=== PATIENT | female | born 1980 | race Caucasian/White ===

== ENCOUNTER → 2021-11-12 10:26 | Outpatient (CLI) | payer BC, SELFPAY ==
--- NOTE | ~2021-11-12 | MM_ITS ---
EXAMINATION: MM screening lisa BI w silverio HISTORY: Screening TECHNIQUE: Craniocaudal and mediolateral oblique 3-D tomosynthesis images were obtained and synthetic 2-D images were generated. CAD analysis was submitted and interpreted. COMPARISON: No prior mammogram is available for comparison at this institution. BREAST PARENCHYMAL COMPOSITION: There are scattered areas of fibroglandular density. FINDINGS: There is no evidence of suspicious mass, calcification, or architectural distortion to sugg est malignancy in either breast. There has been no suspicious interval change. IMPRESSION: 1. No mammographic evidence of malignancy. 2. Recommend routine screening mammography in one year. BI-RADS Category 1: Negative Reviewed, dictated and finalized at location A.
== END ==
PROVIDERS: PCP Physician Assistant; Visit Provider Physician Assistant
DX: Z12.31 Encounter for screening mammogram for malignant neoplasm of breast (principal)
CPT/HCPCS: 77063; 77067

== ENCOUNTER → 2022-03-03 12:40 | Outpatient (CLI) | payer BC, SELFPAY ==
--- NOTE | ~2022-03-03 | US_ITS ---
EXAMINATION: US pelvic complete DATE: 03/03/2022 13:00 INDICATION: Pelvic pain for 6 months Comparison:No prior studies for comparison. TECHNIQUE: Multiple transabdominal and endovaginal sonographic images of the pelvis performed. FINDINGS: The uterus measures 8.3 x 5.1 x 6.5 cm. The endometrial complex measures 9 mm. The right ovary measures 2.3 x 1.2 x 2.8 cm and the left ovary measures 2.5 x 1.5 x 2.5 cm. There ar e small follicles in each ovary. Normal doppler signal in both ovaries. There is no free fluid in the pelvis. There are no abnormal masses seen on either side. IMPRESSION: 1. Unremarkable pelvic ultrasound. Reviewed, dictated and finalized at location A.
== END ==
PROVIDERS: PCP Physician Assistant; Visit Provider Physician Assistant
DX: R10.2 Pelvic and perineal pain (principal)
CPT/HCPCS: 76856

== ENCOUNTER 2022-08-23 03:00 | Emergency (ER) | payer BC, SELFPAY ==
--- NOTE | ~2022-08-23 | US_ITS ---
Limited Abdominal Sonogram: Real-time sonographic imaging of the right upper quadrant was performed. Clinical History: Right upper quadrant pain Findings: The liver appears normal with no evidence of mass lesion or bile duct dilatation. Main por mukund vein demonstrates normal direction of flow. The gallbladder is well distended, and contains small layering stones. No definite gallbladder wall thickening. The common bile duct measures 4 mm. The v isualized pancreas, aorta, and IVC are unremarkable. Impression: Cholelithiasis. No definite ultrasound evidence for acute cholecystitis. Reviewed, dictated and finalized at location . UCTION SANITIZER Impression: Cholelithiasis. No definite ultrasound evidence for acute cholecystitis.
--- NOTE | ~2022-08-23 | CT_ITS ---
CT Abdomen and Pelvis with contrast. History: Abdominal pain. Spiral CT of the abdomen and pelvis was performed after the administration of intravenous contrast. 1 00 cc of Omnipaque 350 was administered intravenously without complication. Dose reduction technique was used on this scan by utilizing automated exposure control and iterative reconstruction technique. The dose-length product (DLP) was 645.99 mGy-cm. Findings: Scans through the lung bases demonstrate mild atelectatic change. The liver, spleen, pancreas, adrenals and kidneys are within normal limits. Multiple gallstones are p resent. No evidence of aortic aneurysm. No lymphadenopathy is seen. There is no evidence of bowel obstruction. There is no evidence to suggest acute appendicitis or dive rticulitis. Images through the pelvis were performed. Urinary bladder unremarkable. No adnexal mass seen. No asci marlo is seen. Impression: Cholelithiasis. No CT evidence to suggest acute cholecystitis. Reviewed, dictated and finalized at [facility]. IGERATION BRAZER/SOLDERER Impression: Cholelithiasis. No CT evidence to suggest acute cholecystitis.
--- NOTE | ~2022-08-23 | XR_ITS ---
Clinical Indication: Chest pain PA and lateral views of the chest: Comparison: None Findings: The lungs are clear, without evidence of focal consolidation or pleural effusion. Cardiome diastinal silhouette is within normal limits. Bones and soft tissues are unremarkable. Impression: Normal chest. Reviewed, dictated and finalized at location . T BASIC EDUCATION MANAGER Impression: Normal chest.
--- NOTE | 2022-08-23 03:01 | ECG_ITS ---
Measurements Intervals [place]etter Rate: 55 P: -1 AL: 124 QRS: 22 QRSD: 80 T: 3 QT: 424 QTc: 407 Interpretive Statements SINUS BRADYCARDIA BORDERLINE ST-T WAVE ABNORMALITY- INFERIOR LEADS BASELINE ARTIFACT- I, III, AVR, AVL, AVF BORDERLINE ECG NO PREVIOUS ECG AVAILABLE FOR COMPARISON Electronically Signed On 08-23-2022 7:50:21 [employer]TER by Aren Wang D.O.
[2022-08-23 03:17] VITALS: BP 151/94; PULSE 63; RESP 14; TEMP 36.4; O2SAT 100
[2022-08-23 03:35] LABS: Basophils Absolute Auto 0.1 K/mm3 (0.0-0.1); Basophils Percent Auto 0.5 % (0.2-1.2); Eosinophils Percent Auto 0.3 % (0-4.4); Hemoglobin 12.3 g/dL (12.0-15.0); Immature Granulocyte Absolute 0.03 K/mm3 (0.00-0.031); Immature Granulocyte Percent A 0.3 % (0-0.5); Lymphocytes Absolute Auto 2.46 K/mm3 (0.9-3.2); Lymphocytes Percent Auto 26.5 % (18.3-44.2); Mean Corpuscular HGB Conc 31.5 g/dl (32-36); Mean Corpuscular Hemoglobin 27.6 pg (26-34); Mean Corpuscular Volume 87.4 fl (80-100); Mean Platelet Volume 9.7 fl (7.4-10.4); Monocytes Absolute Auto 0.6 K/mm3 (0.1-0.6); Monocytes Percent Auto 6.6 % (2.6-8.5); Neutrophils Absolute Auto 6.1 K/mm3 (1.3-6.7); Neutrophils Percent Auto 65.8 % (45.5-73.1); Platelet Count Result 334 k/mm3 (150-375); Red Blood Count 4.46 M/mm3 (4.2-5.4); Red Cell Distribution Width 14.6 % (11.5-14.5); White Blood Count 9.3 K/mm3 (4.5-10.0)
[2022-08-23 03:49] LABS: Prothrombin Time 12.8 Seconds (11.1-14.7)
[2022-08-23 03:50] LABS: Partial Thromboplastin Time 24.7 SECONDS (22.3-36.8)
[2022-08-23 03:53] LABS: Alanine Aminotransferase 35 U/L (6-35); Albumin Level 4.4 g/dL (3.5-5.1); Alkaline Phosphatase 79 U/L (38-126); Anion Gap 11 mmol/L (8-16); Aspartate Amino Transferase 30 U/L (14-36); Bilirubin,Total 0.5 mg/dL (0.2-1.3); Blood Urea Nitrogen 14 mg/dL (7-17); Calcium 9.3 mg/dL (8.4-10.2); Carbon Dioxide 22 mmol/L (22-30); Chloride 104 mmol/L (98-107); Estimated CRCL calculation 99 ml/min; Estimated Glomerular Filt Rate > 60; Glucose 137 mg/dL (65-110); Lipase 117 U/L (23-300); Potassium 3.5 mmol/L (3.4-5.0); Sodium 137 mmol/L (137-145)
[2022-08-23 04:04] LABS: Troponin I < 0.012 ng/mL (0.000-0.034)
[2022-08-23 04:23] VITALS: BP 146/92; PULSE 59; PULSE 70; RESP 16; TEMP 36.6; O2SAT 100
[2022-08-23] MEDS: ASPIRIN 81 MG CHEWABLE TABLET 324 MG PO (04:28)
[2022-08-23] MEDS: SODIUM CHLORIDE 0.9% IV 1,000 ML 999 ML IV CONT (05:33)
[2022-08-23] MEDS: ONDANSETRON INJ 4 MG/2 ML VIAL IV PUSH (05:33)
[2022-08-23] MEDS: MORPHINE SULFATE (*CRX) 4 MG/ML INJ IV PUSH (05:33)
[2022-08-23 06:38] LABS: Troponin I < 0.012 ng/mL (0.000-0.034)
--- NOTE | 2022-08-23 06:51 | ED.GENADULT ---
HPI - General Adult General Chief complaint: Chest Pain <Kyle Luis MD - Last Filed: 08/23/22 06:55> Stated complaint: CP x 3 days <Kyle Luis MD - Last Filed: 08/23/22 06:55> Time Seen by Provider: 08/23/22 04:27 <Kyle Luis MD - Last Filed: 08/23/22 06:55> History of Present Illness HPI narrative: Patient is a 42-year-old female who presents emergency department with chief complaint of chest pain. Patient reports that she started having discomfort in her low chest in her epigastric region this evening she states the pain originally started 3 days ago but became constant this evening. Patient states that is unable to get comfortable reports is not improved by anything <Kyle Luis MD - Last Filed: 08/23/22 06:55> Patient is a 42-year-old female who presents to the emergency department with chief complaint of chest pain. Patient reports that she started having discomfort in her low chest in her epigastric region this evening she states the pain originally started 3 days ago but became constant this evening. Patient states that is unable to get comfortable reports is not improved by anything <Haroldo Love MD - Last Filed: 08/23/22 15:49> Related Data Allergies/adverse reactions: Allergies Allergy/AdvReac Type Severity Reaction Status Date / Time No Known Allergies Allergy Unverified 12/24/14 17:43 <Kyle Luis MD - Last Filed: 08/23/22 06:55> Review of Systems Review of Systems: A 10 system review of systems was completed on the patient and is negative except for what is stated in the HPI. Nursing and ancillary documentation was reviewed. <Kyle Luis MD - Last Filed: 08/23/22 06:55> Exam Narrative: GENERAL: Well-appearing, well-nourished, and in no acute distress. HEAD: Normocephalic, atraumatic. EYES: PERRLA and EOMI. ENT: Nares clear, no rhinorrhea or epistaxis. Mucous membranes moist. NECK: Supple. CHEST: Clear to auscultation. No respiratory distress. HEART: Regular rate and rhythm. No murmur heard. Normal peripheral pulses. ABDOMEN: Soft, tenderness to palpation in the right upper quadrant and epigastric region, nondistended, normal active bowel sounds. EXTREMITIES: Normal range of motion. No edema. SKIN: Warm, dry, no rash. NEURO: No focal deficits. Alert and oriented x3. PSYCH: Normal mood and affect. <Kyle Luis MD - Last Filed: 08/23/22 06:55> Course Reevaluation(s) Reevaluation #1: Patient care was signed out to me by Dr. Luis with ultrasound pending. CT abdomen pelvis did show evidence of cholelithiasis with no evidence of cholecystitis. Similar finding was seen on the ultrasound. Patient is afebrile with no leukocytosis. Patient's AST ALT alk phos and T bili are within normal limits. Patient does still have some tenderness to palpation. Patient was comfortable with plan for discharge and close follow-up with surgery. Patient was educated on reasons to return to the emergency room. All questions concerns were addressed. Patient also had negative serial troponins. Low concern for ACS. Symptoms were consistent with biliary colic. <Haroldo Love MD - Last Filed: 08/23/22 15:49> Vital Signs Vital signs: Vital Signs Temperature 97.6 F 08/23/22 03:17 Pulse Rate 63 08/23/22 03:17 Respiratory Rate 14 08/23/22 03:17 Blood Pressure 151/94 H 08/23/22 03:17 Pulse Oximetry 100 08/23/22 03:17 Oxygen Delivery Room Air 08/23/22 03:17 Temperature 97.9 F 08/23/22 04:23 Pulse Rate 59 L 08/23/22 04:23 Respiratory Rate 16 08/23/22 04:23 Blood Pressure 146/92 H 08/23/22 04:23 Pulse Oximetry 100 08/23/22 04:23 Oxygen Delivery Room Air 08/23/22 04:23 <Kyle Luis MD - Last Filed: 08/23/22 06:55> Vital Signs Temperature 97.6 F 08/23/22 03:17 Pulse Rate 63 08/23/22 03:17 Respiratory Rate 1
[2022-08-23] MEDS: HYDROmorphone HCL INJ (*CRX) 1 MG/ML SYR IV PUSH ×2 (06:57→12:04)
== END 2022-08-23 12:23 | disposition home or self-care (01) ==
PROVIDERS: Emergency Provider Emergency Medicine; PCP Physician Assistant
DX: R07.9 Chest pain, unspecified (principal); K80.50 Calculus of bile duct without cholangitis or cholecystitis without obstruction; R07.89 Other chest pain
CPT/HCPCS: 36415; 71046; 74177; 76705; 80053; 83690; 84484; 85025; 85610; 85730; 93005; 96361; 96374; 96375; 96376; 99284; A9270; J1170; J2270; J2405; J7030; Q9967

== ENCOUNTER 2022-08-23 19:14 | Observation (INO) | payer BC, SELFPAY ==
[2022-08-23] VITALS (14 sets, daily range): BP systolic 120–135; BP diastolic 71–87; PULSE 58–76; RESP 10–18; TEMP 36.4; O2SAT 95–100
--- NOTE | ~2022-08-23 | XR_ITS ---
EXAMINATION: XR cholangiogram surg 1st inj DATE: 08/24/2022 16:22 INDICATION: Acute cholecystitis. TECHNIQUE: 129 fluoroscopic images of the right upper quadrant were obtained during intraoperative ch olangiography performed by the surgeon. I was not present in the operating room. Fluoroscopy exposure time was 21 seconds. COMPARISON: CT abdomen and pelvis 08/23/2022 FINDINGS: There is a catheter in the cystic duct. There are surgical clips from cholecystectomy. Ther e is contrast opacification of the common duct. Contrast passes to the duodenum. No choledocholithias is. IMPRESSION: 1. Normal intraoperative cholangiogram. Reviewed, dictated and finalized at location A. ED OATS MILL OPERATOR
--- NOTE | 2022-08-23 21:59 | ED.GENADULT ---
HPI - General Adult General Chief complaint: Unspecified <CHRIS Lemos Last Filed: 08/24/22 00:54> Stated complaint: abdominal pain <CHRIS Lemos Last Filed: 08/24/22 00:54> Time Seen by Provider: 08/23/22 21:29 <CHRIS Lemos Last Filed: 08/24/22 00:54> History of Present Illness HPI narrative: Patient is a 42-year-old female here for evaluation of upper abdominal pain for the past 3 days. The pain is in her epigastric region and is present under her bilateral ribs, worse on the right side. Patient states that she was seen in the ED yesterday and was diagnosed with cholelithiasis. She was feeling better after pain meds in the ED and was sent home with hydrocodone, but states that shortly after being discharged her pain returned and worsened. It is now associated with some nausea and vomiting. It is noted that she had a cardiac work-up that was reassuring. She denies any shortness of breath, fevers or chills, leg swelling. <CHRIS Lemos Last Filed: 08/24/22 00:54> Related Data Home medications: Home Medications Medication Instructions Recorded Confirmed escitalopram oxalate 20 mg tablet 20 mg PO DAILY 08/24/22 08/24/22 levothyroxine 75 mcg tablet 75 mcg PO DAILY 08/24/22 08/24/22 <CHRIS Lemos Last Filed: 08/24/22 00:54> Allergies/adverse reactions: Allergies Allergy/AdvReac Type Severity Reaction Status Date / Time No Known Allergies Allergy Verified 08/24/22 00:34 <CHRIS Lemos Last Filed: 08/24/22 00:54> Review of Systems Review of Systems: Gen: Denies fevers or chills Eyes: Denies eye pain or visual change ENT: Denies congestion Respiratory: Denies shortness of breath or cough CV: Denies chest pain or palpitations GI: Reports abdominal pain, nausea and vomiting. denies burning, urgency, frequency or hematuria Musculoskeletal: Denies back pain or muscle pain Neuro: Denies numbness, tingling, weakness or focal weakness Skin: Denies rash Except as documented, all other systems reviewed and negative <Marjorie Grayson PA-C - Last Filed: 08/24/22 00:54> [facility] Family History Family History: Family History (Updated 08/24/22 @ 00:31 by Shwetha Guo RN) Father Hypertension Heart disease Grandparent Hypertension Heart disease Cancer <Marjorie Grayson PA-C - Last Filed: 08/24/22 00:54> Social History Social History: Social History Smoking status: Never smoker Alcohol intake: current Substance use: current Substance use type: marijuana Lack of Transportation: No Lack of Food: Never True Current Housing: I Have Housing Concerned About Future Housing: No Difficulty Paying Gas/Electric Bills: No Difficulty Paying for Meds: No Currently Unemployed: No Education: High School Diploma/GED Difficulty w/ Childcare or Family Care: No Spiritual care concerns: No <Marjorie Grayson PA-C - Last Filed: 08/24/22 00:54> Exam Narrative: APPEARANCE: Well appearing, no pain in distress, well-nourished. Head: Normocephalic and atraumatic. EYES: PERRLA/EOMI, conjunctivae clear NOSE: No nasal drainage EARS: External ear normal in appearance THROAT: Oropharynx is clear. Mucous membranes are moist. NECK: Supple. No adenopathy, no masses. RESPIRATORY: Airway patent, respirations nonlabored. Clear to auscultation bilaterally, no rales, rhonchi, wheezing. CARDIOVASCULAR: Regular rate and rhythm without murmurs, rubs, or gallops. ABDOMINAL: Tender to palpation in right upper quadrant. No rebound tenderness or guarding. Normoactive bowel sounds. Soft, nontender, nondistended. MUSCULOSKELETAL: Extremities are warm and well-perfused. Moves all extremities well. No edema. NEURO: Normal speech. No focal neurologic deficits. SKIN: Skin is warm and dry. No rashes. PSYC
[2022-08-23] MEDS: HYDROmorphone HCL INJ (*CRX) 1 MG/ML SYR 0.5 MG IV PUSH (22:00)
[2022-08-23] MEDS: ONDANSETRON INJ 4 MG/2 ML VIAL IV PUSH (22:00)
[2022-08-23] MEDS: SODIUM CHLORIDE 0.9% IV 1,000 ML 999 ML IV CONT (22:00)
[2022-08-23 22:02] LABS: Basophils Percent Auto 0.3 % (0.2-1.2); Hematocrit 39.7 % (37.0-47.0); Hemoglobin 12.4 g/dL (12.0-15.0); Immature Granulocyte Absolute 0.04 K/mm3 (0.00-0.031); Immature Granulocyte Percent A 0.4 % (0-0.5); Lymphocytes Absolute Auto 1.04 K/mm3 (0.9-3.2); Lymphocytes Percent Auto 9.2 % (18.3-44.2); Mean Corpuscular HGB Conc 31.2 g/dl (32-36); Mean Corpuscular Hemoglobin 27.4 pg (26-34); Mean Corpuscular Volume 87.6 fl (80-100); Mean Platelet Volume 9.3 fl (7.4-10.4); Monocytes Absolute Auto 0.9 K/mm3 (0.1-0.6); Monocytes Percent Auto 7.6 % (2.6-8.5); Neutrophils Absolute Auto 9.4 K/mm3 (1.3-6.7); Neutrophils Percent Auto 82.5 % (45.5-73.1); Platelet Count Result 316 k/mm3 (150-375); Red Blood Count 4.53 M/mm3 (4.2-5.4); Red Cell Distribution Width 14.7 % (11.5-14.5); White Blood Count 11.4 K/mm3 (4.5-10.0)
[2022-08-23 22:17] LABS: Alanine Aminotransferase 172 U/L (6-35); Albumin Level 4.5 g/dL (3.5-5.1); Alkaline Phosphatase 101 U/L (38-126); Anion Gap 11 mmol/L (8-16); Aspartate Amino Transferase 141 U/L (14-36); Bilirubin,Total 0.7 mg/dL (0.2-1.3); Blood Urea Nitrogen 11 mg/dL (7-17); Carbon Dioxide 22 mmol/L (22-30); Chloride 101 mmol/L (98-107); Estimated CRCL calculation 99 ml/min; Estimated Glomerular Filt Rate > 60; Glucose 152 mg/dL (65-110); Lipase 69 U/L (23-300); Potassium 3.6 mmol/L (3.4-5.0); Sodium 134 mmol/L (137-145)
[2022-08-23 22:51] LABS: Influenza A QL RT-PCR Negative (Negative); Influenza B QL RT-PCR Negative (Negative); SARS-CoV-2 RNA PCR Negative
[2022-08-24] VITALS (14 sets, daily range): BP systolic 96–142; BP diastolic 49–80; PULSE 60–81; RESP 12–18; TEMP 36–37.1; O2SAT 96–100; BMI 34.8
[2022-08-24] MEDS: LACTATED RINGERS 1,000 ML 125 ML IV CONT ×2 (00:23→09:41)
[2022-08-24] MEDS: HYDROmorphone HCL INJ (*CRX) 1 MG/ML SYR 0.5 MG IV PUSH ×3 (00:23→08:09)
--- NOTE | 2022-08-24 00:30 | ADMGEN ---
This patient, Judi Santana, was admitted to [facility] Surg Room 332-02. Patient/family oriented to hospital policies and general routines including ID bracelet, bed and alarms, visiting hours, pain management, procedures, bathroom and other care routines, personal items, smoking policy, room service/diet, and visiting hours. Information on how to activate the Rapid Response Team has been discussed. Patient/Family are encouraged to report perceived risks to care and to ask questions if they do not understand what they are told or what they should do.
--- NOTE | 2022-08-24 09:22 | PM.IMHP ---
H&P: HPI History of Present Illness Date/Time: 08/24/22 09:22 Chief Complaint: RUQ and epigastric abdominal pain Narrative: This is a 42-year-old woman who presented to the ER twice yesterday with complaints of abdominal pain. She woke up from sleep around 0500 3 days ago with epigastric and RUQ abdominal radiating to her mid back and chest. She had Tunisian for dinner the night before. She reports a history of anxiety and has chest pain associated with her anxiety that happens occasionally. Initially, she thought that her pain was related to her anxiety. Typically, this will resolve fairly quickly in the night and she is able to go back to sleep. Although, this time her pain remained constant and was more severe. Her pain is in the epigastric area and RUQ but reportedly worse in the RUQ. She had nausea with one episode of vomiting yesterday. Due to her persistent pain, she presented to the ER early yesterday morning. Labs were unremarkable. Troponin negative x 2. CT abdomen/pelvis and RUQ ultrasound showed cholelithiasis but no other findings to suggest cholecystitis. She was discharged home with Nickie and Gilbert for biliary colic and instructed to follow-up with surgery as an outpatient. She tried to take the Hartman for her abdominal pain at home and it was not controlling her pain, therefore she presented back to the ER in the evening to be re-evaluated. Labs were repeated and showed an increase in her WBC to 11,400 and AST and ALT were elevated. Our service was contacted by the ED provider and she has been admitted for abdominal pain and biliary colic. She is seen on the medical floor with her spouse at the bedside. She is still having a significant amount of RUQ abdominal pain that required IV Dilaudid about 1 hour prior to my arrival. No nausea at this time. Only previous abdominal surgery is deliveries. Review of Systems Review of Systems: All systems reviewed & are unremarkable except as noted in HPI and below Constitutional: Constitutional: Reports no additional constitutional complaints, Denies chills, Denies fatigue, Denies fever(s) and Denies weakness Eyes: Eyes: Reports no additional eye complaints ENT: Reports system reviewed and no additional complaints, except as documented and Denies dizziness Cardiovascular: Cardiovascular: Reports no additional cardiovascular complaints, Denies chest pain and Denies leg edema Respiratory: Respiratory: Reports no additional respiratory complaints, Denies cough and Denies dyspnea Gastrointestinal: Gastrointestinal: Reports as per HPI, Reports no additional gastrointestinal complaints, Reports abdominal pain (epigastric, RUQ), Denies melena, Denies hematochezia, Denies change in bowel habits, Denies change in stool character, Denies coffee ground emesis, Denies constipation, Denies diarrhea, Reports nausea, Reports vomiting and Denies hematemesis Genitourinary: Genitourinary: Reports no additional female genitourinary complaints and Denies dysuria Musculoskeletal: Musculoskeletal: Reports no additional musculoskeletal complaints, Denies abnormal gait and Denies joint swelling Integumentary/Breasts: Skin/Breast: Reports system reviewed and no additional complaints, except as docu and Denies jaundice Neurologic: Reports system reviewed and no additional complaints, except as documented, Denies abnormal gait, Denies focal weakness, Denies numbness and Denies tingling PMFSH Past Medical History Medical History Anxiety Hypothyroidism Surgical History Surgical History History of delivery Family History Family History Father Hypertension Heart disease Grandparent Hypertension Heart disease Cancer Sibling Gallbladder disease Social History Social History (Reviewed 08/24/22 @ 09:32 by Dionne Duarte
[2022-08-24] MEDS: HYDROmorphone HCL INJ (*CRX) 1 MG/ML SYR IV PUSH ×2 (10:50→13:08)
[2022-08-24 11:04] LABS: Lipase 95 U/L (23-300)
--- NOTE | 2022-08-24 13:26 | PC.NURSE ---
Patient off of unit to surgery.
[2022-08-24] MEDS: LACTATED RINGERS 1,000 ML 30 ML IV CONT ×2 (14:00→16:42)
--- NOTE | 2022-08-24 14:17 | WPDANESEPPF ---
Anes - Initial Pre Proc Eval Procedure: Operation Date: 08/24/22 16:00 Proposed Procedures p Laparoscopic Cholecystectomy with Intraoperative Cholangiogram - Ruiz Aguirre DO Date/Time: 08/24/22 14:17 Surgeon: Ruiz Aguirre DO Pre Op Diagnosis: cholecysititis Patient Data Age: 42 Gender: F Height: 1.63 m Weight: 92 kg Last Vital Signs Temp 37.1 C 08/24/22 14:09 Pulse 72 08/24/22 14:09 Resp 16 08/24/22 14:09 BP 117/76 08/24/22 14:09 Pulse Ox 98 08/24/22 14:09 O2 Del Method Room Air 08/24/22 14:09 Allergies Allergy/AdvReac Type Severity Reaction Status Date / Time No Known Allergies Allergy Verified 08/24/22 14:06 Home Medications Medication Instructions Recorded Confirmed Type escitalopram oxalate 20 mg tablet 20 mg PO DAILY 08/24/22 08/24/22 History levothyroxine 75 mcg tablet 75 mcg PO DAILY 08/24/22 08/24/22 History Laboratory Tests 08/23/22 08/23/22 08/23/22 21:54 21:54 22:11 WBC 11.4 K/mm3 H K/mm3 (4.5-10.0) RBC 4.53 M/mm3 M/mm3 (4.2-5.4) Hgb 12.4 g/dL g/dL (12.0-15.0) Hct 39.7 % % (37.0-47.0) MCV 87.6 fl fl (80-100) MCH 27.4 pg pg (26-34) MCHC 31.2 g/dl L g/dl (32-36) RDW 14.7 % H % (11.5-14.5) Plt Count 316 k/mm3 k/mm3 (150-375) MPV 9.3 fl fl (7.4-10.4) Immature Gran % (Auto) 0.4 % % (0-0.5) Neut % (Auto) 82.5 % H % (45.5-73.1) Lymph % (Auto) 9.2 % L % (18.3-44.2) Blanco % (Auto) 7.6 % % (2.6-8.5) Eos % (Auto) 0.0 % % (0-4.4) Baso % (Auto) 0.3 % % (0.2-1.2) Lymph # (Auto) 1.04 K/mm3 K/mm3 (0.9-3.2) Blanco # (Auto) 0.9 K/mm3 H K/mm3 (0.1-0.6) Eos # (Auto) 0.0 K/mm3 K/mm3 (0-0.3) Baso # (Auto) 0.0 K/mm3 K/mm3 (0.0-0.1) Abs Immat Gran (auto) 0.04 K/mm3 H K/mm3 (0.00-0.031) Absolute Neuts (auto) 9.4 K/mm3 H K/mm3 (1.3-6.7) Absolute Nucleated RBC 0.0 K/mm3 K/mm3 (0.0-0.012) Nucleated RBC % 0.0 % % (0.0-0.2) Sodium 134 mmol/L L mmol/L (137-145) Potassium 3.6 mmol/L mmol/L (3.4-5.0) Chloride 101 mmol/L mmol/L (98-107) Carbon Dioxide 22 mmol/L mmol/L (22-30) Anion Gap 11 mmol/L mmol/L (8-16) BUN 11 mg/dL mg/dL (7-17) Creatinine 0.70 mg/dL mg/dL (0.7-1.0) Estim Creat Clear Calc 99 ml/min ml/min Estimated GFR > 60 (59 - ) Glucose 152 mg/dL H mg/dL (65-110) Calcium 9.0 mg/dL mg/dL (8.4-10.2) Total Bilirubin 0.7 mg/dL mg/dL (0.2-1.3) AST 141 U/L H U/L (14-36) ALT 172 U/L H U/L (6-35) Alkaline Phosphatase 101 U/L U/L (38-126) Total Protein 8.0 g/dL g/dL (6.3-8.2) Albumin 4.5 g/dL g/dL (3.5-5.1) Lipase 69 U/L U/L (23-300) Influenza A (RT-PCR) Negative (Negative) Influenza B (RT-PCR) Negative (Negative) SARS-CoV-2 RNA (RT-PCR) Negative 08/24/22 10:48 WBC RBC Hgb Hct MCV MCH MCHC RDW Plt Count MPV Immature Gran % (Auto) Neut % (Auto) Lymph % (Auto) Blanco % (Auto) Eos % (Auto) Baso % (Auto) Lymph # (Auto) Blanco # (Auto) Eos # (Auto) Baso # (Auto) Abs Immat Gran (auto) Absolute Neuts (auto) Absolute Nucleated RBC Nucleated RBC % Sodium Potassium Chloride Carbon Dioxide Anion Gap BUN Creatinine Estim Creat Clear Calc Estimated GFR Glucose Calcium Total Bilirubin AST ALT Alkaline Phosphatase Total Protein Albumin Lipase 95 U/L U/L (23-300) Influenza A (RT-PCR)
--- NOTE | 2022-08-24 14:45 | WPDHPUPDATE1 ---
History and Physical Update Update Date/Time: 08/24/22 14:45 History and Physical has been reviewed, including an updated exam of the patient. There are NO changes in the patient's condition. Risks, benefits, and alternatives have been discussed and questions answered. Patient agrees to proceed with procedure.
[2022-08-24] MEDS: KETOROLAC 15 MG/ML VIAL (*BKC) IV PUSH (14:59)
[2022-08-24] MEDS: ACETAMINOPHEN 500 MG TABLET 1000 MG PO (14:59)
[2022-08-24] MEDS: ceFAZolin 2 GM/D5W 50 ML 2 GM/50 ML BAG IVPB ×2 (15:14→22:21)
[2022-08-24] MEDS: BUPIVACAINE/EPINEPHRINE 0.5% 30 ML VIAL INFILTRATE (16:31)
--- NOTE | 2022-08-24 16:38 | W.PM.PROC2 ---
Procedure Note - Detailed Date of Procedure 08/24/22 Pre-op Diagnosis Acute calculous cholecystitis Post-op Diagnosis Same Procedure Performed Laparoscopic Cholecystectomy with cholangiogram Surgeon Ruiz Aguirre, DO Anesthesia General and Local (0.5% bupivacaine) Indications this is a 42 year woman who presented to the emergency department yesterday with right upper quadrant abdominal pain. She was sent home from the emergency department yesterday morning because her symptoms were improving, but she returned several hours later with worsening pain. She has had multiple episodes like this in the past and her current symptoms have been persisting over the last 3 days. She denies any fevers. Workup in the emergency department showed evidence of cholelithiasis. She had slightly elevated white blood count and liver enzymes. She was admitted for further treatment. Discussions were made with the patient about treatment options and decision was made to proceed with laparoscopic cholecystectomy with cholangiogram, possible open. Findings Laparoscopic cholecystectomy was performed. The gallbladder appeared acutely inflamed and was very distended and difficult to grasp. I aspirated about 60 mL of bile to decompress the gallbladder enough to grasp and manipulate. There were several stones within the gallbladder. The gallbladder wall appeared very indurated and hyperemic. The cystic duct appeared to taper down to normal size. The intraoperative cholangiogram was obtained using fluoroscopy and Omnipaque contrast. No filling defects or obstruction were identified. The images were sent to Radiology for interpretation. The gallbladder was then removed and sent to the lab for pathology. Description of Procedure Procedure as well as risks, benefits, and alternatives were discussed with patient. Written consent was obtained and placed in chart prior to procedure. The patient was brought back to surgical suite. Patient was placed in supine position on operating table. Time-out was done to confirm patient and procedure. Patient was then intubated by the anesthesia department. Abdomen was prepped and draped in sterile fashion using chlorhexidine prep. 0.5% bupivacaine with epinephrine was infiltrated at each site of incision. A 5 millimeter incision was made near the umbilicus, and a 5 millimeter Optiview trocar was advanced through the abdominal layers under direct visualization. Once inside the abdominal cavity, carbon dioxide was insufflated to create a pneumoperitoneum. The camera was inserted and the abdomen was inspected. No immediate abnormalities were identified. The patient was placed in reverse Trendelenburg position and rotated slightly to the left. An 11 millimeter incision was made in the subxiphoid region, and an 11 millimeter trocar was inserted under direct visualization. Two 5 millimeter incisions were made in the right upper quadrant, and two 5 millimeter trocars were inserted under direct visualization. The gallbladder was identified and grasped at the fundus and retracted superiorly. It was then grasped at the infundibulum retracted laterally. Careful dissection around the neck of the gallbladder was performed using blunt dissection with a [place] grasper and hook electrocautery. The cystic duct was identified, and a window was created behind it. The cystic artery was also identified and a window was created behind it. The critical view of safety was identified, visualizing the cystic duct running directly into the neck of the gallbladder, and the cystic artery running directly into the wall of the gallbladder. A 5 millimeter clip recreation director was then used to place 2 clips proximally and 1 clip distally on the cystic artery. It was then transected using endoscopic scissors. The Sin clamp was then placed across the neck of the gallbladder and the Sin cholangiocatheter was advanced into the distal neck of the gallbladder. Bile was abl
--- NOTE | 2022-08-24 18:14 | PC.NURSE ---
Patient back on unit from surgery
[2022-08-24] MEDS: HYDROcodone/acetaminophen (*CRX) 5-325 MG TABLET 1 TAB PO ×2 (18:35→23:56)
[2022-08-24] MEDS: IBUPROFEN 600 MG TABLET PO (22:44)
[2022-08-25 03:45] VITALS: BP 98/58; PULSE 57; RESP 18; TEMP 36.3; O2SAT 96
[2022-08-25] MEDS: ceFAZolin 2 GM/D5W 50 ML 2 GM/50 ML BAG IVPB (05:59)
[2022-08-25] MEDS: LEVOTHYROXINE SODIUM 75 MCG TABLET PO (05:59)
[2022-08-25] MEDS: HYDROcodone/acetaminophen (*CRX) 5-325 MG TABLET 1 TAB PO ×2 (05:59→10:13)
[2022-08-25 06:46] LABS: Hematocrit 33.3 % (37.0-47.0); Hemoglobin 10.3 g/dL (12.0-15.0); Mean Corpuscular HGB Conc 30.9 g/dl (32-36); Mean Corpuscular Hemoglobin 27.6 pg (26-34); Mean Corpuscular Volume 89.3 fl (80-100); Platelet Count Result 275 k/mm3 (150-375); Red Blood Count 3.73 M/mm3 (4.2-5.4); Red Cell Distribution Width 14.9 % (11.5-14.5); White Blood Count 7.7 K/mm3 (4.5-10.0)
[2022-08-25 06:50] LABS: Alanine Aminotransferase 296 U/L (6-35); Albumin Level 3.6 g/dL (3.5-5.1); Alkaline Phosphatase 122 U/L (38-126); Anion Gap 5 mmol/L (8-16); Aspartate Amino Transferase 232 U/L (14-36); Bilirubin,Total 0.7 mg/dL (0.2-1.3); Blood Urea Nitrogen 8 mg/dL (7-17); Calcium 8.4 mg/dL (8.4-10.2); Carbon Dioxide 26 mmol/L (22-30); Chloride 103 mmol/L (98-107); Estimated CRCL calculation 100 ml/min; Estimated Glomerular Filt Rate > 60; Glucose 86 mg/dL (65-110); Potassium 3.2 mmol/L (3.4-5.0); Sodium 134 mmol/L (137-145)
[2022-08-25 07:45] VITALS: BP 103/60; PULSE 66; RESP 16; TEMP 36.6; O2SAT 98
[2022-08-25] MEDS: ESCITALOPRAM OXALATE 10 MG TABLET 20 MG PO (10:13)
[2022-08-25] MEDS: POTASSIUM CHLORIDE 20 MEQ TABLET 40 MEQ PO (10:14)
--- NOTE | 2022-08-25 10:55 | WPDANESPN ---
Anes - Prog Note Post-Op Date/Time: 08/25/22 10:55 Cardiovascular status: normal Respiratory status: normal Airway patency: baseline Mental status: baseline Post-Op hydration status: normal Vital Signs: Last Vital Signs Temp 36.6 C 08/25/22 07:45 Pulse 66 08/25/22 07:45 Resp 16 08/25/22 07:45 BP 103/60 08/25/22 07:45 Pulse Ox 98 08/25/22 07:45 O2 Del Method Room Air 08/24/22 20:00 O2 Flow Rate 8 08/24/22 17:15 Pain Score (VAS): 09/09 I/O: Intake & Output 08/24/22 08/25/22 08/25/22 23:59 07:59 15:59 Intake Total 2640 350 240 Output Total 400 1500 Balance 2240 -1150 240 Laboratory Tests 08/25/22 05:42 08/25/22 05:42 08/24/22 08/25/22 08/25/22 10:48 05:42 05:42 WBC 7.7 RBC 3.73 L Hgb 10.3 L Hct 33.3 L MCV 89.3 MCH 27.6 MCHC 30.9 L RDW 14.9 H Plt Count 275 MPV 10.0 Sodium 134 L Potassium 3.2 L Chloride 103 Carbon Dioxide 26 Anion Gap 5 L BUN 8 Creatinine 0.70 Estim Creat Clear Calc 100 Estimated GFR > 60 Glucose 86 Calcium 8.4 Total Bilirubin 0.7 AST 232 H ALT 296 H Alkaline Phosphatase 122 Total Protein 7.0 Albumin 3.6 Lipase 95 Post-procedural complaints: none Patient Feedback: Patient satisfied with anesthetic care.
--- NOTE | 2022-08-25 12:12 | PM.DS ---
DS: Admitting Diagnosis Discharge Date 08/25/2022 Admitting Diagnosis acute calculous cholecystitis , elevated liver enzymes DS: Discharge Diagnosis Discharge Diagnosis (1) Acute calculous cholecystitis: Code(s): K80.00 - Calculus of gallbladder with acute cholecystitis without obstruction Status: Acute (2) Elevated LFTs: Code(s): R79.89 - Other specified abnormal findings of blood chemistry Status: Acute DS: Summary Hospital Course Reason for hospitalization: Acute calculous cholecystitis Hospital Course: This is a 42-year-old woman who presented to the emergency department on 08/23/2022 with constant right upper quadrant abdominal pain. She had been to the emergency department earlier that morning with similar symptoms but was starting to feel better. Gallbladder ultrasound showed evidence of cholelithiasis without cholecystitis and she had a normal white blood count and normal liver enzymes. When she returned with persistent pain that evening, repeat imaging was not performed, but she did have a slightly elevated white blood count and slightly elevated transaminases. She was admitted for further treatment. On 08/24/2022 she was still having some persistent pain and discussions were made with the patient about treatment options. She underwent laparoscopic cholecystectomy with intraoperative cholangiogram on 08/24/2022. Surgery was uncomplicated and she was returned to the surgical floor postoperatively. Her diet and activity were advanced as tolerated. On postop day 1 she was tolerating a low-fat diet and her pain was adequately controlled. She was remaining hemodynamically stable. She was discharged on postop day 1. Status at Discharge Functional status at discharge: independent ambulation Overall status at discharge: patient is progressing back to baseline Time Spent with Patient Time attestation: Total time spent providing and/or coordinating discharge services: Time spent: Less than 30 minutes Exam Const: General: no acute distress and alert Orientation/consciousness: patient oriented x3 Resp: Effort & Inspection: normal respiratory effort Auscultation: clear to auscultation bilaterally GI: Inspection: normal to inspection and non-distended GI Palp: Yes Soft to palpation and Yes Tenderness to palpation present (GI) ( Incisional) Auscultation: normal bowel sounds Other: incisions intact with glue, minimal bruising around medial right upper quadrant incision. DS: Data Data Completed and Pending Pending studies at discharge: Pending at discharge 08/24/22 15:37 Surgical [PTH] Routine Labs on day of discharge: Labs from last 24 hours 08/25/22 08/25/22 05:42 05:42 WBC 7.7 RBC 3.73 L Hgb 10.3 L Hct 33.3 L MCV 89.3 MCH 27.6 MCHC 30.9 L RDW 14.9 H Plt Count 275 MPV 10.0 Sodium 134 L Potassium 3.2 L Chloride 103 Carbon Dioxide 26 Anion Gap 5 L BUN 8 Creatinine 0.70 Estim Creat Clear Calc 100 Estimated GFR > 60 Glucose 86 Calcium 8.4 Total Bilirubin 0.7 AST 232 H ALT 296 H Alkaline Phosphatase 122 Total Protein 7.0 Albumin 3.6 Discharge Plan Discharge Attending physician on discharge: Ruiz Dudley Consulting providers: Marjorie Grayson Discharging Clinician: Ruiz Dudley Patient Disposition: Home, Self-Care Activity: other - see discharge instructions Diet: other - see discharge instructions Wound Care Instructions: other - see discharge instructions Discharge Instructions: DISCHARGE INSTRUCTION SHEET FOR HERNIA, GALLBLADDER AND APPENDIX SURGERIES DR. DUDLEY PATIENT TO TAKE HOME 1. May shower in 24 hours, no soaking in bath x 2weeks. 2. Call office for: Wound increasingly painful or bleeding Vomiting Fever of greater than 101 degrees 3. If no bowel movement for three days, take 1 oz. (30 ml) Milk of Magnesia or MiraLax 17g 1 to 2 time
== END 2022-08-25 13:35 | disposition home or self-care (01) ==
LOC: ANHED 22:48 → ANH3MEDSUR 23:43
PROVIDERS: Physician Assistant; Admitting Provider Surgery; Emergency Provider Emergency Medicine; PCP Physician Assistant; Visit Provider Surgery
PROC: 0FT44ZZ Resection of Gallbladder, Percutaneous Endoscopic Approach (ICD-10-PCS; CPT 47562; principal; 2022-08-24 16:00)
DX: K80.12 Calculus of gallbladder with acute and chronic cholecystitis without obstruction (principal); E03.9 Hypothyroidism, unspecified; R79.89 Other specified abnormal findings of blood chemistry; F41.9 Anxiety disorder, unspecified; E66.9 Obesity, unspecified; Z68.34 Body mass index [BMI] 34.0-34.9, adult; Z20.822 Contact with and (suspected) exposure to COVID-19
CPT/HCPCS: 47563; 36415; 74300; 80053; 83690; 85025; 85027; 87636; 88304; 96361; 96365; 96366; 96374; 96375; 96376; 99285; A9270; G0378; J0690; J1100; J1170; J1885; J2250; J2405; J2704; J3010; J7030; J7120

== ENCOUNTER → 2022-11-16 13:13 | Outpatient (CLI) | payer BC, SELFPAY ==
--- NOTE | ~2022-11-16 | MM_ITS ---
EXAMINATION: MM screening lisa BI w [facility] HISTORY: Screening mammogram TECHNIQUE: Craniocaudal and mediolateral oblique 3-D tomosynthesis images were obtained and synthetic 2-D images were generated. CAD analysis was submitted and interpreted. COMPARISON: 11/12/2021 BREAST PARENCHYMAL COMPOSITION: There are scattered areas of fibroglandular density. FINDINGS: No suspicious mass, calcification, or architectural distortion are identified in either maury ast to suggest malignancy. There has been no suspicious interval change. IMPRESSION: 1. No mammographic evidence of malignancy. 2. Recommend routine screening mammography in one year. BI-RADS Category 1: Negative Reviewed, dictated and finalized at location A.
== END ==
PROVIDERS: PCP Physician Assistant; Visit Provider Physician Assistant
DX: Z12.31 Encounter for screening mammogram for malignant neoplasm of breast (principal)
CPT/HCPCS: 77063; 77067

== ENCOUNTER 2024-09-26 12:31 | Outpatient (CLI) | payer OTHER, SELFPAY | END 2024-09-26 12:32 | disposition home or self-care (01) | LOC: MICIMG 12:33 | PROVIDERS: PCP Physician Assistant; Visit Provider Physician Assistant | DX: Z12.31 Encounter for screening mammogram for malignant neoplasm of breast (principal) | CPT/HCPCS: 77063; 77067 ==